=== PATIENT | male | born 2000 | race Caucasian/White ===

== ENCOUNTER 2020-05-12 22:27 | Emergency (ER) | payer OTHER ==
[~2020-05-12] VITALS: Ht 180.3 cm; Wt 79.6 kg
[2020-05-12 22:28] VITALS: BP 140/66
--- NOTE | 2020-05-12 22:36 | NUR ---
md at bedside to assess pt
--- NOTE | 2020-05-12 22:38 | NUR ---
THIS IS A 19Y M THAT COMES IN AFTER TWISTING HIS ANKLE SKATEBOARDING PT REPORTS DROPPING INTO A HALF PIPE AND HEARING HIS ANKLE MAKE A POP SOUND. AFTER HE HAD DIFFICULTY BEARING WEIGHT. CMS INTACT. PT RESTING ON [employer] [facility]NEY NO NEEDS AT THIS TIME
--- NOTE | 2020-05-12 23:23 | NUR ---
at bedside to recheck pt and discuss poc at this time
== END 2020-05-12 23:41 | disposition home or self-care (01) ==
LOC: ED 23:00
DX: S93.491A Sprain of other ligament of right ankle, initial encounter (principal); X50.0XXA Overexertion from strenuous movement or load, initial encounter; Y93.89 Activity, other specified; Y92.89 Other specified places as the place of occurrence of the external cause; Y99.8 Other external cause status
CPT/HCPCS: 99283